=== PATIENT | male | born 1980 | race American Indian/Alaskan Native ===

== ENCOUNTER 2016-09-03 11:45 | Emergency (ER) | payer SELFPAY ==
[2016-09-03 12:10] VITALS: BP 122/90
--- NOTE | 2016-09-03 14:20 | Emergency Department Report ---
HPI - General Chief Complaint: High BP Time Seen by Provider: 09/03/16 14:16 - HPI HPI: 36 y/o male with no complaint .pt state here for blood pressure medication refill.pt denies any pain or discomfort at present .denies any blurry vision , any headache or dizziness.pt state been out of blood pressure medication for 2 days . ED Past Medical Hx - Past Medical History Previous Medical History?: Yes Hx Hypertension: Yes - Surgical History Past Surgical History?: No - Social History Smoking Status: Current Every Day Smoker Substance Use Type: Alcohol, Prescribed - Medications Home Medications: Home Medications Medication Instructions Recorded Confirmed Last Taken Type Hydrochlorothiazide [HCTZ] 25 mg PO QDAY #30 tablet 09/03/16 Unknown Rx amLODIPine [Norvasc] 10 mg PO DAILY #30 tab 09/03/16 Unknown Rx ED Review of Systems ROS: Stated complaint: HBP/DIZZINESS Other details as noted in HPI Constitutional: denies: chills, fever Eyes: denies: eye pain, eye discharge, vision change ENT: denies: ear pain, throat pain Respiratory: denies: cough, shortness of breath, wheezing Cardiovascular: denies: chest pain, palpitations Endocrine: no symptoms reported Gastrointestinal: denies: abdominal pain, nausea, diarrhea Genitourinary: denies: urgency, dysuria Musculoskeletal: denies: back pain, joint swelling, arthralgia Skin: denies: rash, lesions Neurological: denies: headache, weakness, paresthesias Psychiatric: denies: anxiety, depression Hematological/Lymphatic: denies: easy bleeding, easy bruising Physical Exam - Physical Exam Vital Signs: Vital Signs 09/03/16 12:06 Temperature 98.3 F Pulse Rate 83 Respiratory 16 Rate Blood Pressure 122/90 O2 Sat by Pulse 100 Oximetry Physical Exam: GENERAL: The patient is well-developed and well-nourished. Patient is in NAD. HENT: Normocephalic. Atraumatic. Patient has moist mucous membranes. Throat: No erythema, swelling or exudates. Ears:Tympanic membranes pearly alexandra ,intact , and free of exudate and erythema . EYES: Extraocular motions are intact, PERRL NECK: Supple. No meningitic signs are noted. There is no adenopathy noted. CHEST/LUNGS: Clear to auscultation bilaterally. No wheezing, rales or rhonchi noted. There is no respiratory distress noted. HEART/CARDIOVASCULAR: Regular rate and rhythm. Normal S1 S2. No murmurs, rubs , clicks, or gallops. ABDOMEN: Abdomen is soft, nontender.. Bowel sounds normoactive. There is no abdominal distention. Negative rebound tenderness. : Deferred. SKIN: There is no rash. There is no edema. There is no diaphoresis.Normal skin turgor NEURO: The patient is A&Ox3. The patient has no focal neurologic deficits. MUSCULOSKELETAL: There is no tenderness or deformity. There is no limitation range of motion. posture erect.Spine aligned,no deformities. PSYCH: Pt has appropriate mood and affect. ED Course Vital Signs 09/03/16 12:06 Temperature 98.3 F Pulse Rate 83 Respiratory 16 Rate Blood Pressure 122/90 O2 Sat by Pulse 100 Oximetry ED Medical Decision Making - Medical Decision Making Hypertension medication refill pt is current out of medication and will follow up with primary . Critical care attestation.: If time is entered above; I have spent that time in minutes in the direct care of this critically ill patient, excluding procedure time. ED Disposition Clinical Impression: Medication refill Disposition: DISCHARGED TO HOME OR SELFCARE Is pt being admited?: No Does the pt Need Aspirin: No Condition: Stable Additional Instructions: follow up with primary care doctor Prescriptions: amLODIPine [Norvasc] 10 mg PO DAILY #30 tab Hydrochlorothiazide [HCTZ] 25 mg PO QDAY #30 tablet Referrals: PRIMARY CARE, [Primary Care Provider] - 3-5 Days [facility] [Outside] - 3-5 Days Forms: Work/School Release Form(ED) Time of Disposition: 14:21
== END 2016-09-03 14:36 | disposition home or self-care (01) ==
LOC: ED 11:45
DX: Z76.0 Encounter for issue of repeat prescription (principal); I10 Essential (primary) hypertension; F17.200 Nicotine dependence, unspecified, uncomplicated
CPT/HCPCS: 99282

== ENCOUNTER 2016-10-17 18:49 | Emergency (ER) | payer SELFPAY | END 2016-10-17 19:00 | disposition left against medical advice (07) | LOC: ED 18:49 | DX: R10.9 Unspecified abdominal pain (principal); R11.10 Vomiting, unspecified; Z53.21 Procedure and treatment not carried out due to patient leaving prior to being seen by health care provider ==

== ENCOUNTER 2016-10-18 12:39 | Emergency (ER) | payer SELFPAY ==
[2016-10-18] MEDS ORDERED: ALUM-MAG HYDROX-SIMETH 200-200-20MG/5ML PO ONE (14:59)
[2016-10-18] MEDS ORDERED: PEPCID PO ONE (14:59)
[2016-10-18] MEDS ORDERED: ZOFRAN ODT PO ONE (15:00)
[2016-10-18 15:44] LABS: Basophils % (Auto) 0.9 % (0.0-1.8); Eosinophils % (Auto) 1.9 % (0.0-4.3); Hematocrit 42.4 % (35.5-45.6); Hemoglobin 14.1 gm/dl (11.8-15.2); Mean Corpuscular HGB Conc 33 % (32-34); Mean Corpuscular Hemoglobin 32 pg (28-32); Mean Corpuscular Volume 97 fl (84-94); Platelet Count 173 K/mm3 (140-440); Red Blood Count 4.38 M/mm3 (3.65-5.03); Red Cell Distribution Width 14.4 % (13.2-15.2); White Blood Count 5.4 K/mm3 (4.5-11.0)
[2016-10-18 16:01] LABS: Amylase 66 units/L (27-131); Lipase 23 units/L (13-60)
[2016-10-18 16:05] LABS: Alanine Aminotransferase 13 units/L (7-56); Albumin 4.2 g/dL (3.9-5); Albumin/Globulin Ratio 1.5 %; Alkaline Phosphatase 87 units/L (35-129); Anion Gap 16 mmol/L; BUN/Creatinine Ratio 8.88; Blood Urea Nitrogen 8 mg/dL (9-20); Calcium 9.1 mg/dL (8.4-10.2); Carbon Dioxide 28 mmol/L (22-30); Chloride 103.6 mmol/L (98-107); Glucose 88 mg/dL (75-100); Potassium 4.8 mmol/L (3.6-5.0); Sodium 143 mmol/L (137-145)
[2016-10-18 16:24] LABS: Bilirubin,Direct < 0.2 mg/dL (0-0.2); Bilirubin,Indirect 0.3 mg/dL
--- NOTE | 2016-10-18 16:36 | Emergency Department Report ---
Vomiting/Diarrhea - HPI Chief Complaint: Nausea/Vomiting/Diarrhea Stated Complaint: HIGH BP/ABD PAIN Time Seen by Provider: 10/18/16 14:58 Duration: 3 weeks Nausea/Vomiting Severity: Moderate Pain Location: Epigastric Symptoms: Yes Watery Diarrhea, Yes Able to Tolerate Fluids, No Bloody diarrhea, No Fever, No Recent Unusual Foods, No Recent Untreated Water, No Recent use of Antibiotics, No Family w/ Similar Symptoms, No Contacts w/ Similar Symptoms, No Rash, No Hematuria, No Recent URI Symptoms Other History: 36-year-old male past medical history hypertension, irritable bowel disorder presents with complaint of one month of intermittent diarrhea. Patient states he has had intermittent episodes of nausea with intermittent vomiting. Patient is awake alert and oriented 3 not in acute distress. Denies any chest pain palpitations shortness of breath. Denies any recent travel or antibiotic use. 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 Patient states that he has had approximately 3-4 episodes of diarrhea within the last 24 hours and one episode of vomiting 2 days ago. Patient denies any pain states it is more sensation of discomfort and states that he feels that his stomach is grumbling. Patient is passing gas and stool within the last few hours. Denies any dysuria. Patient states he is also not taking his hypertension medicine for over 2 months. ED Review of Systems ROS: Stated complaint: HIGH BP/ABD PAIN Other details as noted in HPI Constitutional: denies: chills, fever Eyes: denies: eye pain, eye discharge, vision change ENT: denies: ear pain, throat pain Respiratory: denies: cough, shortness of breath, wheezing Cardiovascular: denies: chest pain, palpitations Endocrine: no symptoms reported Gastrointestinal: abdominal pain, nausea. denies: diarrhea Genitourinary: denies: urgency, dysuria Musculoskeletal: denies: back pain, joint swelling, arthralgia Skin: denies: rash, lesions Neurological: denies: headache, weakness, paresthesias Psychiatric: denies: anxiety, depression Hematological/Lymphatic: denies: easy bleeding, easy bruising ED Past Medical Hx - Past Medical History Hx Hypertension: Yes - Social History Smoking Status: Current Every Day Smoker Substance Use Type: Alcohol, Prescribed - Medications Home Medications: Home Medications Medication Instructions Recorded Confirmed Last Taken Type Hydrochlorothiazide [HCTZ] 25 mg PO QDAY #30 tablet 09/03/16 Unknown Rx amLODIPine [Norvasc] 10 mg PO DAILY #30 tab 09/03/16 Unknown Rx Famotidine [Pepcid] 20 mg PO BID PRN #60 tablet 10/18/16 Unknown Rx Hydrochlorothiazide [HCTZ] 25 mg PO QDAY #30 tablet 10/18/16 Unknown Rx Lansoprazole [Prevacid] 15 mg PO QDAY #30 cap 10/18/16 Unknown Rx Ondansetron [Zofran Odt] 4 mg PO Q8H PRN #20 tab.rapdis 10/18/16 Unknown Rx amLODIPine [Norvasc] 10 mg PO DAILY #30 tab 10/18/16 Unknown Rx Vomiting Diarrhea Exam - Exam General: Vital signs noted. No distress. Alert and acting appropriately. HEENT: Yes Moist Mucous Membranes, No Pharyngeal Erythema, No Pharyngeal Exudates, No Rhinorrhea, No Conjuctival Injection, No Frontal Tenderness, No Maxillary Tenderness Neck: No Adenopathy, No Rigidity Lungs: Yes Clear Lung Sounds, Yes Good Air Exchange, No Wheezes, No Stridor, No Cough, No Nasal Flaring, No Retractions, No Use of Accessory Muscles Heart exam: Regular: Yes, Murmur: No, Tachycardia: No Abdomen: Tenderness: No (H and has no tenderness in all 4 quadrants clinical abdominal exam no tenderness at McBurney's point negative Melo sign no flank tenderness), Peritoneal Signs: No, Distention: No, Hyperactive Bowel sounds: No Skin exam: Rash: No, Edema: No, Normal turgor: Yes Neurologic: Alert and oriented, no deficits. Musculoskeletal: Unremarkable. ED Course Vital Signs 10/18/16 13:46 Temperature 98.4 F Pulse Rate 75 Respiratory 18 Rate Blood Pressure 152/113 O2 Sat by Pulse 100 Oximetry ED Medical Decision Making - Lab Data Result diagrams: 10/18/16 15:28 10/18/16 15:28 - Medical Decision Making A/P: Irritable bowel syndrome 1-Pepcid, Prevacid, Pepto-Bismol when necessary 2-I refilled patient's prescription for amlodipine. Patient is hypertensive but asymptomatic. We'll give him a primary care referral so that he can follow- up 3-referral to gastroenterology 4-I advised patient to return to the ED if he experiences chest pain shortness of breath diaphoresis bloody stools or any bloody vomitus, inability to tolerate oral fluids. Patient is able to tolerate fluids without any difficulty passes by mouth challenge in the ED Critical care attestation.: If time is entered above; I have spent that time in minutes in the direct care of this critically ill patient, excluding procedure time. ED Disposition Clinical Impression: Irritable bowel syndrome Qualifiers: Irritable bowel syndrome type: with diarrhea Qualified Code(s): K58.0 - Irritable bowel syndrome with diarrhea Hypertension Qualifiers: Hypertension type: unspecified secondary hypertension Qualified Code(s): I15.9 - Secondary hypertension, unspecified; I15 - Secondary hypertension Disposition: DISCHARGED TO HOME OR SELFCARE Is pt being admited?: No Does the pt Need Aspirin: No Condition: Stable Instructions: Loperamide (By mouth), Irritable Bowel Syndrome (ED), Acute Nausea and Vomiting (ED), Acute Diarrhea (ED), Hypertension (ED) Prescriptions: amLODIPine [Norvasc] 10 mg PO DAILY #30 tab Famotidine [Pepcid] 20 mg PO BID PRN #60 tablet PRN Reason: Indigestion Hydrochlorothiazide [HCTZ] 25 mg PO QDAY #30 tablet Lansoprazole [Prevacid] 15 mg PO QDAY #30 cap Ondansetron [Zofran Odt] 4 mg PO Q8H PRN #20 tab.rapdis PRN Reason: Nausea Referrals: KIKE KRAUSE MD [Staff Physician] - 3-5 Days [facility] [Outside] - 3-5 Days [facility] [Outside] - 3-5 Days [facility] [Provider Group] - 3-5 Days [facility] [Outside] - 3-5 Days Forms: Work/School Release Form(ED) Time of Disposition: 16:41
[2016-10-18] MEDS ORDERED: NORVASC PO ONE (16:42)
[2016-10-18] MEDS ORDERED: HCTZ PO ONE (16:43)
[2016-10-18 17:51] VITALS: BP 164/117
== END 2016-10-18 17:00 | disposition home or self-care (01) ==
LOC: ED 12:39
DX: K58.0 Irritable bowel syndrome with diarrhea (principal); I15.9 Secondary hypertension, unspecified; I10 Essential (primary) hypertension; F17.200 Nicotine dependence, unspecified, uncomplicated
CPT/HCPCS: 36415; 80048; 80074; 82150; 83690; 85025; 99283; Q0162

== ENCOUNTER 2016-11-21 14:37 | Emergency (ER) | payer BC ==
[2016-11-21 14:55] VITALS: BP 128/81
[2016-11-21 15:54] LABS: Alanine Aminotransferase 17 units/L (7-56); Albumin 4.2 g/dL (3.9-5); Albumin/Globulin Ratio 1.2 %; Alkaline Phosphatase 84 units/L (35-129); Anion Gap 14 mmol/L; Blood Urea Nitrogen 15 mg/dL (9-20); Calcium 9.2 mg/dL (8.4-10.2); Carbon Dioxide 28 mmol/L (22-30); Chloride 99.3 mmol/L (98-107); Glucose 115 mg/dL (75-100); Lipase 32 units/L (13-60); Sodium 137 mmol/L (137-145); Total Protein 7.6 g/dL (6.3-8.2)
[2016-11-21 16:04] LABS: Basophils % (Auto) 0.7 % (0.0-1.8); Eosinophils % (Auto) 2.8 % (0.0-4.3); Hematocrit 41.8 % (35.5-45.6); Hemoglobin 13.9 gm/dl (11.8-15.2); Mean Corpuscular HGB Conc 33 % (32-34); Mean Corpuscular Hemoglobin 32 pg (28-32); Mean Corpuscular Volume 95 fl (84-94); Platelet Count 172 K/mm3 (140-440); Red Blood Count 4.39 M/mm3 (3.65-5.03); Red Cell Distribution Width 13.7 % (13.2-15.2); White Blood Count 4.9 K/mm3 (4.5-11.0)
[2016-11-21 16:24] LABS: Bilirubin,Urine NEG (Negative); Blood,Urine NEG (Negative); Ketones,Urine TR mg/dL (Negative); Leukocyte Esterase,Urine NEG (Negative); Mucus,Urine 2+ /HPF; Nitrite,Urine NEG (Negative); Protein,Urine <15 mg/dL mg/dL (Negative); WBC,Urine < 1.0 /HPF (0.0-6.0)
--- NOTE | 2016-11-27 22:23 | ED Elopement Review ---
ED Pt Elopement review - Results review Lab results: Laboratory Tests 11/21/16 11/21/16 11/21/16 15:12 15:12 15:25 WBC 4.9 RBC 4.39 Hgb 13.9 Hct 41.8 MCV 95 H MCH 32 MCHC 33 RDW 13.7 Plt Count 172 Lymph % (Auto) 36.1 H [place] % (Auto) 10.2 H Eos % (Auto) 2.8 Baso % (Auto) 0.7 Lymph # 1.8 [place] # 0.5 Eos # 0.1 Baso # 0.0 Seg Neutrophils % 50.2 Seg Neutrophils # 2.5 Sodium 137 Potassium 4.0 Chloride 99.3 Carbon Dioxide 28 Anion Gap 14 BUN 15 Creatinine 1.0 Estimated GFR > 60 BUN/Creatinine Ratio 15.00 Glucose 115 H Calcium 9.2 Total Bilirubin 0.60 AST 20 ALT 17 Alkaline Phosphatase 84 Total Protein 7.6 Albumin 4.2 Albumin/Globulin Ratio 1.2 Lipase 32 Urine Color [place] Urine Turbidity Clear Urine pH 5.0 Ur Specific [place] 1.028 Urine Protein <15 mg/dl Urine Glucose (UA) Neg Urine Ketones Tr Urine Blood Neg Urine Nitrite Neg Urine Bilirubin Neg Urine Urobilinogen 4.0 Ur Leukocyte Esterase Neg Urine WBC (Auto) < 1.0 Urine RBC (Auto) 2.0 Urine Mucus 2+ - Call Back decision Pt Call Back Decision: No action required
== END 2016-11-21 19:20 | disposition left against medical advice (07) ==
LOC: ED 14:37
DX: K58.9 Irritable bowel syndrome, unspecified (principal); R10.9 Unspecified abdominal pain; Z53.21 Procedure and treatment not carried out due to patient leaving prior to being seen by health care provider
CPT/HCPCS: 36415; 80053; 81001; 83690; 85025